=== PATIENT | female | born 1995 | race Caucasian/White ===

== ENCOUNTER 2017-09-19 09:15 | Inpatient (IN) | payer MEDICAID ==
[2017-09-19 10:39] LABS: RUPTURE FETAL MEMBRANES POSITIVE (NEGATIVE)
[2017-09-19] MEDS ORDERED: MAGNESIUM SULFATE 4 GM/100 ML 100 ML IV (12:30)
[2017-09-19] MEDS ORDERED: BETAMET NA PHOS/AC(6 MG/ML) 5ML INJ IM (12:30)
[2017-09-19] MEDS ORDERED: LACTATED RINGER'S 1,000 ML IV (12:30)
[2017-09-19] MEDS ORDERED: AMPICILLIN 2 GM/NS (PMX) 100 ML IV (12:30)
[2017-09-19 12:47] LABS: ADD UMIC YES; UR ASCORBIC ACID NEGATIVE (NEGATIVE); UR BILIRUBIN (Dip) NEGATIVE (NEGATIVE); UR BLOOD (Dip) 1+ mg/dL (NEGATIVE); UR CLARITY CLEAR (CLEAR); UR COLOR YELLOW (YELLOW); UR GLUCOSE (Dip) NEGATIVE (NEGATIVE); UR KETONES (Dip) NEGATIVE (NEGATIVE); UR LEUKOCYTE ESTERASE (Dip) TRACE Leu/ul (NEGATIVE); UR NITRITE (Dip) NEGATIVE (NEGATIVE); UR RBC 8 /HPF (0-5); UR SPECIFIC GRAVITY (Dip) 1.012 (1.003-1.030); UR TOTAL PROTEIN (Dip) NEGATIVE (NEGATIVE); UR UROBILINOGEN (Dip) NEGATIVE (NEGATIVE); UR WBC 4 /HPF (0-5)
[2017-09-19 12:53] LABS: ADD MAN DIFF? NO
[2017-09-19 12:57] LABS: WHITE BLOOD COUNT 14.1 10^3/ul (4.8-10.8)
[2017-09-19 12:57] LABS: BASOPHILS % 0.2 % (0.0-2.0); EOSINOPHILS % 0.1 % (0.0-7.0); HEMATOCRIT 36.1 % (37.0-47.0); HEMOGLOBIN 11.4 g/dl (12.0-16.0); LYMPHOCYTES # 1.7 10^3/ul (0.8-2.9); LYMPHOCYTES % 11.7 % (15.0-51.0); MEAN CORPUSCULAR HEMOGLOBIN 24.3 pg (29.0-33.0); MEAN CORPUSCULAR HGB CONC 31.6 g/dl (32.0-37.0); MEAN CORPUSCULAR VOLUME 76.8 fl (82.0-101.0); MEAN PLATELET VOLUME 9.3 fl (7.4-10.4); MONOCYTE # 0.7 10^3/ul (0.3-0.9); MONOCYTES % 4.9 % (0.0-11.0); NEUTROPHIL # 11.6 10^3/ul (1.6-7.5); NEUTROPHILS % 82.3 % (39.0-77.0); PLATELET COUNT 370 10^3/UL (140-415); RED CELL DISTRIBUTION WIDTH 14.8 % (11.5-14.5)
[2017-09-19] MEDS ORDERED: MAGNESIUM SULFATE 20 GM/500 ML 500 ML IV (13:00)
[2017-09-19 13:18] LABS: ALANINE AMINOTRANSFERASE 20 IU/L (13-69); ALBUMIN 3.3 g/dl (3.3-4.9); ALKALINE PHOSPHATASE 249 IU/L (42-121); ANION GAP 14 (8-16); ASPARTATE AMINO TRANSFERASE 16 IU/L (15-46); BLOOD UREA NITROGEN 8 mg/dl (7-20); CALCIUM 8.6 mg/dl (8.4-10.2); CARBON DIOXIDE 21 mmol/L (21-31); CHLORIDE 111 mmol/L (97-110); CREATININE 0.54 mg/dl (0.44-1.00); GLUCOSE 85 mg/dl (70-220); SODIUM 142 mmol/L (135-144); TOTAL PROTEIN 6.6 g/dl (6.1-8.1)
[2017-09-19 13:19] LABS: MAGNESIUM 1.7 mg/dl (1.7-2.5)
[2017-09-19 13:48] LABS: HEPATITIS B SURFACE ANTIGEN NEGATIVE (NEGATIVE)
[2017-09-19 13:52] LABS: INR 0.93; PROTIME 12.6 Sec (11.9-14.9)
[2017-09-19 13:53] LABS: PARTIAL THROMBOPLASTIN TIME 26.5 Sec (25.0-35.0)
[2017-09-19] MEDS: LACTATED RINGER'S 1,000 ML IV (13:55)
[2017-09-19] MEDS ORDERED: AMPICILLIN 2 GM/NS (PMX) 100 ML (13:57)
[2017-09-19] MEDS ORDERED: OXYTOCIN 30 UNITS/LR 500 ML IV ×2 (14:00→23:30)
[2017-09-19] MEDS ORDERED: MISOPROSTOL 200 MCG TAB PR ×2 (14:00→23:30)
[2017-09-19] MEDS ORDERED: CEFAZOLIN 2 GM/50 ML (PMX) 50 ML IV (14:00)
[2017-09-19] MEDS ORDERED: METHYLERGONOVINE 0.2 MG INJ IM ×2 (14:00→23:30)
[2017-09-19] MEDS ORDERED: CARBOPROST 250 MCG INJ IM ×2 (14:00→23:30)
[2017-09-19 14:01] LABS: HIV 1&2 ANTIBODY NEGATIVE (NEGATIVE)
[2017-09-19] MEDS: AMPICILLIN 2 GM/NS (PMX) 100 ML IVPB (14:02)
[2017-09-19 14:13] LABS: URIC ACID 5.1 mg/dl (3.1-7.9)
[2017-09-19] MEDS: MAGNESIUM SULFATE 4 GM/100 ML 100 ML IVPB (14:24)
[2017-09-19] MEDS: MAGNESIUM SULFATE 20 GM/500 ML 500 ML IV (14:58)
[2017-09-19 15:02] LABS: RAPID PLASMA REAGIN NONREACTIVE (NR)
[2017-09-19 15:23] LABS: AMPHETAMINE/METHAMPHETAMINE Negative (NEGATIVE); BARBITURATES Negative (NEGATIVE); BENZODIAZEPINES Negative (NEGATIVE); CANNABINOIDS Negative (NEGATIVE); COCAINE Negative (NEGATIVE); OPIATES Negative (NEGATIVE)
[2017-09-19] MEDS ORDERED: AMPICILLIN 1 GM/NS (PMX) 50 ML IV (16:30)
[2017-09-19] MEDS: LABETALOL HCL 20MG INJ IV (16:56)
[2017-09-19] MEDS ORDERED: AMPICILLIN 1 GM/NS (PMX) 50 ML IVPB (17:00)
[2017-09-19] MEDS ORDERED: morphine SULFATE/PF (10 MG/10 ML) INJ (17:33)
[2017-09-19] MEDS ORDERED: FENTAnyl 50 MCG/ML VIAL (17:34)
[2017-09-19] MEDS ORDERED: BUPIVACAINE 0.75%/DEXT (SPINAL) 2 ML INJ (17:34)
[2017-09-19] MEDS ORDERED: PHENYLephrine (100 MCG/ML) 5ML SYG (18:05)
[2017-09-19] MEDS ORDERED: ONDANSETRON 4 MG INJ (18:07)
[2017-09-19] MEDS ORDERED: DEXAMETHASONE 4 MG/ML 1 ML INJ (18:07)
[2017-09-19] MEDS ORDERED: DIPHENHYDRAMINE 50 MG INJ IV (19:00)
[2017-09-19] MEDS ORDERED: ONDANSETRON 4 MG INJ IV (19:00)
[2017-09-19] MEDS ORDERED: HYDROmorphONE 0.5 MG/0.5 ML SYG IV ×2 (19:00)
[2017-09-19] MEDS ORDERED: NALOXONE (0.4 MG/ML) INJ IV (19:00)
[2017-09-19] MEDS ORDERED: ZOLPIDEM 5 MG TAB PO (19:00)
[2017-09-19] MEDS: OXYTOCIN 30 UNITS/LR 500 ML IV (19:20)
[2017-09-19] MEDS ORDERED: CA GLUCONATE (GM) 10% 10ML INJ IV (23:30)
[2017-09-20 01:23] LABS: MAGNESIUM 5.3 mg/dl (1.7-2.5)
[2017-09-20] MEDS: LACTATED RINGER'S 1,000 ML IV ×3 (02:31→13:00)
[2017-09-20] MEDS: MAGNESIUM SULFATE 20 GM/500 ML 500 ML IV ×2 (02:31→13:04)
[2017-09-20 08:35] LABS: ABNORMAL IP MESSAGE 1; HEMATOCRIT 25.3 % (37.0-47.0); HEMOGLOBIN 8.1 g/dl (12.0-16.0); MEAN CORPUSCULAR HEMOGLOBIN 24.7 pg (29.0-33.0); MEAN CORPUSCULAR VOLUME 77.1 fl (82.0-101.0); MEAN PLATELET VOLUME 9.5 fl (7.4-10.4); PLATELET COUNT 335 10^3/UL (140-415); RED BLOOD COUNT 3.28 10^6/ul (4.20-5.40); RED CELL DISTRIBUTION WIDTH 15.1 % (11.5-14.5)
[2017-09-20 08:35] LABS: WHITE BLOOD COUNT 25.3 10^3/ul (4.8-10.8)
[2017-09-20 08:38] LABS: POSITIVE DIFF @See below
[2017-09-20 08:39] LABS: ADD MAN DIFF? YES
[2017-09-20 09:22] LABS: MAGNESIUM 5.7 mg/dl (1.7-2.5)
[2017-09-20 09:54] LABS: ANISOCYTOSIS 2+ (0-0); BAND NEUTROPHILS #M 3.2 10^3/ul (0.0-0.6); BAND NEUTROPHILS % (M) 13 % (0-4); LYMPHOCYTES #M 1.7 10^3/ul (0.8-2.9); LYMPHOCYTES % (M) 7 % (15-51); MICROCYTOSIS 1+ (0-0); MONOCYTES % (M) 4 % (0-11); PLATELET ESTIMATE NORMAL; POLYCHROMASIA 1+ (0-0); SEGMENTED NEUTROPHILS (M) % 76 % (39-77); SMUDGE%M 2 % (0-0)
[2017-09-20 13:42] LABS: MAGNESIUM 5.7 mg/dl (1.7-2.5)
[2017-09-20] MEDS ORDERED: OXYCODONE/ACETAMINOPHEN (5/325) TAB PO ×2 (19:00)
[2017-09-20] MEDS: IBUPROFEN 800 MG TAB PO (21:59)
[2017-09-20] MEDS: LANOLIN 7 GM TUBE TOP (21:59)
[2017-09-21] MEDS: IBUPROFEN 800 MG TAB PO ×3 (06:01→22:37)
[2017-09-22] MEDS: IBUPROFEN 800 MG TAB PO ×2 (06:05→14:15)
[2017-09-22] MEDS: DIPHTH/TET/ACEL PERTUSS (ADULT) 0.5 ML VIAL IM* (11:28)
[2017-09-23 11:11] LABS: RUBELLA ANTIBODY - IGG 2.83 index; RUBELLA ANTIBODY - IGM <20.00 AU/mL
== END 2017-09-22 15:45 | disposition home or self-care (01) | DRG 766 ==
LOC: OBT 09:15 → L-D 09:16 → PP1 09-20 00:21 → OBT 12:10 → L-D 12:00
PROVIDERS: Obstetrics & Gynecology
PROC: 10D00Z1 Extraction of Products of Conception, Low, Open Approach (ICD-10-PCS; principal; 2017-09-19)
DX: O13.4 Gestational [pregnancy-induced] hypertension without significant proteinuria, complicating childbirth (principal); O34.211 Maternal care for low transverse scar from previous cesarean delivery; Z3A.39 39 weeks gestation of pregnancy; Z37.0 Single live birth
CPT/HCPCS: 76815; 76818; 80053; 80307; 81001; 83735; 84112; 84560; 85025; 85610; 85730; 86592; 86703; 86762; 86885; 86900; 86901; 87340; 90715; 99464